=== PATIENT | male | born 1990 | race Asian ===

== ENCOUNTER 2018-02-01 13:35 | Emergency (ER) | payer MEDICAID ==
[~2018-02-01] VITALS: Ht 157.5 cm; Wt 45.4 kg
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
[2018-02-01 15:58] VITALS: BP 124/72
== END 2018-02-01 16:08 | disposition home or self-care (01) ==
LOC: ER 13:36
DX: S80.02XA Contusion of left knee, initial encounter (principal); S16.8XXA Other specified injury of muscle, fascia and tendon at neck level, initial encounter; J45.909 Unspecified asthma, uncomplicated; V49.49XA Driver injured in collision with other motor vehicles in traffic accident, initial encounter; Y93.89 Activity, other specified; Y92.410 Unspecified street and highway as the place of occurrence of the external cause; Y99.8 Other external cause status
CPT/HCPCS: 73564; 99284; A4606; Z7610